=== PATIENT | female | born 1940 | race Caucasian/White ===

== ENCOUNTER → 2017-03-03 | Outpatient (CLI) | payer MEDICARE, BC ==
[~2017-03-03] MED LIST: ALLERGY MED; CALCIUM; CALCIUM + D 6001 TA1 PO; CALCIUM 1,0001 EACH PO; JOINT JUICE; VIT D PO; VITAMIN B-121000 MCG PO; [UNRECOGNIZED DRUG - OTHER]
--- NOTE | ~2017-03-03 | MY11 ---
[facility] A Service of [facility] RADIOLOGY TEXT RESULTS PATIENT: RAMSEY MANZO LOCATION: [facility] : 44 UNIT #: [id number] AGE: [address]: Marnie Chambers MD SEX: F ORDER DR: [id number] [facility] [address] [place], [place] [address] [id number] O MR#: [id number] Acc #: [id number] NAME: RAMSEY MANZO : 1940 SEX: F STUDY DATE/TIME: 03/03/2017 11:37 UNIT: [facility] ROOM: STUDY DESCRIPTION: MY Mammogram Screening Dig Jose Luis Attending Physician: Marnie Chambers M.D. Referring Physician: Marnie Chambers M.D. Ordering Physician: Marnie Chambers M.D. Primary Care Physician: Marnie Chambers M.D. MEDICAL IMAGING REPORT This report is preliminary unless electronic signature is present EXAM Bilateral digital screening mammogram with CAD 03/03/2017. IMPRESSION 76-day-old asymptomatic female with no personal history of breast cancer. No family history of breast cancer. FINDINGS The background breast parenchyma consists of scattered fibroglandular densities. No suspicious mass, microcalcification, or architectural distortion. The exam is compared to prior mammogram dated 12/12/2013. IMPRESSION Negative mammogram. RECOMMENDATIONS Annual screening mammogram. BIRADS: 1 Negative. Patients over the age of 40 are entered into a reminder system with target due date for the next mammogram. A result letter will also be sent to the patient. Dictated by... Sebastian Mckeon M.D. THIS IS AN ELECTRONICALLY VERIFIED REPORT Sebastian Mckeon M.D. at 03/03/2017 5:15 PM [facility] A Service of [facility] & [facility] RADIOLOGY TEXT RESULTS PATIENT: RAMSEY MANZO LOCATION: [facility] #: [id number] : 44 UNIT #: [id number] AGE: [address]: Marnie Chambers MD SEX: F ORDER DR: ABY/abida TD: 03/03/2017 15:29 JOB #: [id number] MEDICAL IMAGING REPORT Page 1 of 1 COPY
--- NOTE | ~2017-03-03 | BD1 ---
[facility] A Service of [facility] & [facility] RADIOLOGY TEXT RESULTS PATIENT: RAMSEY MANZO LOCATION: [facility] : 44 UNIT #: [id number] AGE: [address]: Marnie Chambers MD SEX: F ORDER DR: [id number] [facility] [address] [place], [place] [address] [id number] O MR#: [id number] Acc #: [id number] NAME: RAMSEY MANZO : 1940 SEX: F STUDY DATE/TIME: 03/03/2017 11:20 UNIT: [facility] ROOM: STUDY DESCRIPTION: BD Dexa Bone Dens 1+ Site Attending Physician: Marnie Chambers M.D. Referring Physician: Marnie Chambers M.D. Ordering Physician: Marnie Chambers M.D. Primary Care Physician: Marnie Chambers M.D. MEDICAL IMAGING REPORT This report is preliminary unless electronic signature is present EXAM DXA scan. DATE 03/03/2017 HISTORY 76-year-old postmenopausal female for osteoporosis screening. COMPARISON DXA scan 12/12/2013. FINDINGS L1-L4 total bone mineral density is 0.702 g/cm2 with T-score -3.1 and Z-score -0.8, corresponding to the range of osteoporosis. This represents a 1.3% increase in bone mineral density since 12/12/2013. The left femoral neck bone mineral density is 0.509 g/cm2 with T-score -3.1 and Z-score -0.1, corresponding to the range of osteoporosis. This represents a 4.8% decrease in bone mineral density since 12/12/2013, which is statistically significant. IMPRESSION 1. Osteoporosis in the lumbar spine and within the left femoral neck. There has been a statistically significant decrease in bone mineral density within the left femoral neck compared to 12/12/2013. Dictated by... Ibeth Crain M.D. THIS IS AN ELECTRONICALLY VERIFIED REPORT Ibeth Crain M.D. at 03/04/2017 8:35 AM [facility] A Service of [facility] & [facility] RADIOLOGY TEXT RESULTS PATIENT: RAMSEY MANZO LOCATION: [facility] : 44 UNIT #: [id number] AGE: [address]: Marnie Chambers MD SEX: F ORDER DR: ALYSON/matt TD: 03/04/2017 02:01 JOB #: [id number] MEDICAL IMAGING REPORT Page 1 of 1 COPY
== END | disposition home or self-care (01) ==
LOC: CWCC 10:19
DX: Z12.31 Encounter for screening mammogram for malignant neoplasm of breast (principal); Z78.0 Asymptomatic menopausal state; M81.0 Age-related osteoporosis without current pathological fracture
CPT/HCPCS: 77080; G0202

== ENCOUNTER → 2017-03-12 | Outpatient (CLI) | payer MEDICARE, BC | END | disposition home or self-care (01) | LOC: CSSDAY 09:29 | DX: M81.0 Age-related osteoporosis without current pathological fracture (principal); Z79.899 Other long term (current) drug therapy | CPT/HCPCS: 96372; J0897 ==